=== PATIENT | female | born 2000 | race Caucasian/White ===

== ENCOUNTER 2022-05-04 20:26 | Emergency (ER) | payer OTHER, SELFPAY ==
[2022-05-04 20:32] VITALS: BP 142/78; PULSE 87; RESP 18; TEMP 37; O2SAT 99; BMI 25.6
--- NOTE | 2022-05-04 20:40 | CRLHL7_ITS ---
For Patients: As a result of the Cures Act, medical imaging exams and procedure reports are released immediately into your electronic medical record. You may view this report before your referring provider. If you have questions, please contact your health care provider. Indication: Trauma. Technique: Right knee, 3 views. Comparison: None. Findings: Bones: Alignment is normal. No fractures or bone lesions. Joint spaces: Unremarkable. Soft tissues: Unremarkable. Impression: No sign of acute injury. Dictated by Finesse Boyle MD @ 05/04/2022 9:09:13 PM (Electronically Signed)
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
== END 2022-05-04 21:50 | disposition home or self-care (01) ==
PROVIDERS: Emergency Provider Student in an Organized Health Care Education/Training Program
DX: M25.561 Pain in right knee (principal)
CPT/HCPCS: 73562; 99283; 99284